=== PATIENT | female | born 1995 | race Hispanic/Latino ===

== ENCOUNTER 2016-12-13 13:33 | Emergency (ER) | payer OTHER ==
[~2016-12-13] VITALS: Ht 170.2 cm; Wt 53.0 kg
[~2016-12-13 13:33] MED LIST: AMOXICILLIN500 MG OR; AMOXICILLIN500 MG PO; AUGMENTIN400 MG OR; BACTRIM DS1 TAB OR; BACTRIM DS1 TAB PO; CHERATUSSIN OR; CIPROFLOXACN500 MG OR; DEP0PROVERA IM; DEPO-PROVER150 MG/ML IM; FERROUS SULF325 M1 PO; FLONASE NASAL50 MCG; FLOXIN OTIC OT; FLUZONE SPLT1 M1 IM; LORTAB 7.57.5 MG PO; METROGEL VAG0.75 % VA; MULTI VIT OR; NO HOME MEDS; PRE-NATAL PO; PREVACID30 M2 PO; PRILOSEC20 MG/CAP PO; PYRIDIUM200 MG OR; SPRINTEC 2828 DAY PO; TUBERSOL5 MG/0.1 M ID; ZOFRAN ODT4 MG OR; [UNRECOGNIZED DRUG - OTHER] OR; no home meds
[2016-12-13] MEDS ORDERED: NAPROSYN500 MG PO (14:25)
[2016-12-13 14:30] VITALS: BP 110/62
== END 2016-12-13 14:30 | disposition home or self-care (01) | DRG 563 ==
LOC: ED 13:33
DX: S93.601A Unspecified sprain of right foot, initial encounter (principal); W22.03XA Walked into furniture, initial encounter; Y92.009 Unspecified place in unspecified non-institutional (private) residence as the place of occurrence of the external cause

== ENCOUNTER 2017-12-16 21:55 | Emergency (ER) | payer OTHER ==
[~2017-12-16] VITALS: Ht 170.2 cm; Wt 68.6 kg
[~2017-12-16 21:55] MED LIST changes: +NAPROSYN500 MG PO
[2017-12-16 23:04] VITALS: BP 124/77
== END 2017-12-16 23:26 | disposition left against medical advice (07) | DRG 778 ==
LOC: ED 21:55
DX: O60.03 Preterm labor without delivery, third trimester (principal); O36.8130 Decreased fetal movements, third trimester, not applicable or unspecified; Z3A.35 35 weeks gestation of pregnancy; Z91.19 Patient's noncompliance with other medical treatment and regimen

== ENCOUNTER 2018-08-18 13:17 | Emergency (ER) | payer OTHER ==
[~2018-08-18] VITALS: Ht 170.2 cm; Wt 60.0 kg
[2018-08-18 13:39] VITALS: BP 115/62
[2018-08-18 15:32] LABS: URINE BLOOD DIPSTICK NEGATIVE (NEGATIVE); URINE GLUCOSE - DIPSTICK NEGATIVE (NEGATIVE); URINE KETONE NEGATIVE (NEGATIVE); URINE LEUK ESTERASE NEGATIVE (NEGATIVE); URINE NITRITE - DIPSTICK NEGATIVE (Negative); URINE PROTEIN - DIPSTICK TRACE mg/dL (NEG-TRACE); URINE SPECIFIC GRAVITY 1.025
[2018-08-18 15:34] LABS: URINE BILIRUBIN - DIPSTICK NEGATIVE (NEGATIVE); URINE COLOR DK. YELLOW
[2018-08-18] MEDS ORDERED: DIFLUCAN100 M1 PO (16:46)
== END 2018-08-18 16:55 | disposition home or self-care (01) ==
LOC: ED 13:17
PROVIDERS: Family Medicine
DX: J11.1 Influenza due to unidentified influenza virus with other respiratory manifestations (principal); B37.3 Candidiasis of vulva and vagina; R50.9 Fever, unspecified; R05 Cough; J02.9 Acute pharyngitis, unspecified; R51 Headache; R52 Pain, unspecified

== ENCOUNTER 2021-03-09 13:27 | Emergency (ER) | payer OTHER ==
[~2021-03-09] VITALS: Ht 170.2 cm; Wt 68.0 kg
[~2021-03-09 13:27] MED LIST changes: +DIFLUCAN100 M1 PO
[2021-03-09 13:58] LABS: URINE BLOOD DIPSTICK NEGATIVE (NEGATIVE); URINE GLUCOSE - DIPSTICK NEGATIVE (NEGATIVE); URINE KETONE TRACE mg/dL (NEGATIVE); URINE LEUK ESTERASE NEGATIVE (NEGATIVE); URINE PROTEIN - DIPSTICK TRACE mg/dL (NEG-TRACE); URINE SPECIFIC GRAVITY >=1.030
[2021-03-09 14:00] LABS: URINE BILIRUBIN - DIPSTICK NEGATIVE (NEGATIVE); URINE COLOR DK. YELLOW; URINE NITRITE - DIPSTICK POSITIVE (Negative)
[2021-03-09 14:01] LABS: HEMATOCRIT 32.4 % (37.0-47.0); HEMOGLOBIN 11.5 g/dl (12.0-16.0); IMMATURE GRANULOCYTES 0.8 % (0.0-5.0); MEAN CELL VOLUME 87.6 fL CALC (80.0-100.0); MEAN CORPUSCULAR HGB 31.1 pG CALC (26.0-32.0); MEAN CORPUSCULAR HGB CONC 35.5 g/dL CAL (32.0-36.0); NEUT# 5.85 thou/uL (2.00-7.15); RED BLOOD COUNT 3.7 mill/uL (4.20-5.60); RED CELL DISTRI WIDTH 17.5 % (11.5-15.5)
[2021-03-09 14:07] LABS: URINE RBC 0-2 RBC/hpf (0-5)
[2021-03-09 14:08] LABS: URINE BACTERIA RARE hpf; URINE SQUAMOUS EPITHELIAL CELL FEW EPI/hpf (0-FEW)
[2021-03-09 14:13] LABS: ALBUMIN 4.3 g/dL (3.2-5.0); ALKALINE PHOSPHATASE 54 u/l (38-126); AMYLASE 68 u/l (30-110); ANION GAP 13 (6-22 (CALC)); BUN 12 mg/dL (7-17); BUN/CREATININE RATIO 21 (12-20 (CALC)); CARBON DIOXIDE 21 mmol/l (22-30); CHLORIDE 103 mmol/l (95-108); CREATININE 0.6 mg/dL (0.5-1.0); GFR > 60 ML/MIN (>=60 (CALC)); GFR FOR AFR.AMER. > 60 ML/MIN (>=60 (CALC)); LIPASE 74 u/l (23-300); POTASSIUM 3.4 mmol/l (3.5-5.1); SGOT/AST 30 u/l (14-36); SODIUM 134 mmol/l (137-146); TOTAL PROTEIN 7.5 g/dL (6.3-8.2)
[2021-03-09 14:16] LABS: BILIRUBIN, TOTAL 2.1 mg/dL (0.0-1.4)
[2021-03-09 14:25] LABS: MYOGLOBIN 16 ng/mL (0 - 62)
[2021-03-09] MEDS ORDERED: PREVACID30 M3 PO (14:40)
[2021-03-09] MEDS ORDERED: REGLAN10 MG PO (14:40)
[2021-03-09] MEDS ORDERED: FIORICET PO (14:44)
[2021-03-09 14:56] VITALS: BP 110/68
== END 2021-03-09 14:57 | disposition home or self-care (01) ==
LOC: ED 13:27
PROVIDERS: Emergency Medicine
DX: K29.70 Gastritis, unspecified, without bleeding (principal); G43.909 Migraine, unspecified, not intractable, without status migrainosus
CPT/HCPCS: S0164

== ENCOUNTER 2022-09-06 11:24 | Emergency (ER) | payer OTHER ==
[~2022-09-06] VITALS: Ht 170.2 cm; Wt 65.0 kg
[~2022-09-06 11:24] MED LIST changes: +FIORICET PO; +PREVACID30 M3 PO; +REGLAN10 MG PO
[2022-09-06 12:06] LABS: BASO% 0.4 % (0-3); EOS% 1.5 % (0-8); HEMATOCRIT 32.3 % (37.0-47.0); HEMOGLOBIN 11.6 g/dl (12.0-16.0); IMMATURE GRANULOCYTES 0.3 % (0.0-5.0); LYMPH% 24.2 % (15-41); MEAN CELL VOLUME 88.5 fL CALC (80.0-100.0); MEAN CORPUSCULAR HGB 31.8 pG CALC (26.0-32.0); MEAN CORPUSCULAR HGB CONC 35.9 g/dL CAL (32.0-36.0); MONO% 6.7 % (2-13); NEUT# 4.48 thou/uL (2.00-7.15); NEUT% 66.9 % (42-76); RED BLOOD COUNT 3.65 mill/uL (4.20-5.60); RED CELL DISTRI WIDTH 18.9 % (11.5-15.5)
[2022-09-06 12:07] LABS: URINE BILIRUBIN - DIPSTICK NEGATIVE (NEGATIVE); URINE BLOOD DIPSTICK LARGE (NEGATIVE); URINE COLOR YELLOW; URINE GLUCOSE - DIPSTICK NEGATIVE (NEGATIVE); URINE KETONE NEGATIVE (NEGATIVE); URINE LEUK ESTERASE NEGATIVE (NEGATIVE); URINE PROTEIN - DIPSTICK NEGATIVE (NEG-TRACE); URINE UROBILINOGEN - DIPSTICK 0.2 E.U./dL (0.2)
[2022-09-06 12:08] LABS: URINE NITRITE - DIPSTICK NEGATIVE (Negative)
[2022-09-06 12:15] LABS: ALBUMIN 4.9 g/dL (3.2-5.0); ALKALINE PHOSPHATASE 43 u/l (38-126); ANION GAP 11 (6-22 (CALC)); BILIRUBIN, TOTAL 1.9 mg/dL (0.0-1.4); BUN 9 mg/dL (7-17); BUN/CREATININE RATIO 15 (12-20 (CALC)); CARBON DIOXIDE 28 mmol/l (22-30); CHLORIDE 103 mmol/l (95-108); CREATININE 0.6 mg/dL (0.5-1.0); GFR FOR AFR.AMER. > 60 ML/MIN (>=60 (CALC)); GFR OTHER RACES > 60 ML/MIN (>=60 (CALC)); LIPASE 57 u/l (23-300); SGOT/AST 34 u/l (14-36); SODIUM 138 mmol/l (137-146); URINE SQUAMOUS EPITHELIAL CELL FEW EPI/hpf (0-FEW); URINE WBC 0-2 WBC/hpf (0-5)
[2022-09-06 13:17] VITALS: BP 130/83
== END 2022-09-06 13:35 | disposition home or self-care (01) ==
LOC: ED 11:24
PROVIDERS: Family Medicine
DX: R10.31 Right lower quadrant pain (principal); R10.32 Left lower quadrant pain